=== PATIENT | male | born 1965 | race Caucasian/White ===

== ENCOUNTER 2021-12-30 21:20 | Emergency (ER) | payer BC, SELFPAY ==
--- NOTE | ~2021-12-30 | XR_ITS ---
EXAMINATION: XR ankle RT min 3V EXAM DATE: 12/30/2021 22:42 INDICATION: Pain, Injury Today, Deformity To Rt Lower Extremity. TECHNIQUE: Right ankle frontal, lateral and oblique projections obtained and reviewed. There is no p rior study for comparison. FINDINGS: There is acute oblique fracture through the right fibular distal metaphysis extending into the superolateral aspect of the mortise. There is widening of the mortise indicating disruption of th e medial ankle ligaments, about 1 cm of lateral displacement. There is mild lateral angulation of the talus. Also suspicion of a posterior malleolar fracture. Overlying soft tissue swelling. IMPRESSION: Right ankle fracture dislocation, mortise disruption. Reviewed, dictated and finalized at location B. ENT ACCESS DIRECTOR
[2021-12-30 21:23] VITALS: BP 132/90; PULSE 79; RESP 18; TEMP 36.5; O2SAT 100
[2021-12-30 23:13] VITALS: BP 135/78; PULSE 78; RESP 18; TEMP 37.1; O2SAT 100
[2021-12-30] MEDS: HYDROcodone/acetaminophen (*CRX) 5-325 MG TABLET 1 TAB PO (23:20)
--- NOTE | 2021-12-30 23:32 | ED.LOWEXIN ---
HPI - Extremity Injury (Lower) General Chief Complaint: Extremity Injury, Lower Stated Complaint: right ankle pain, slipped on the ice Time Seen by Provider: 12/30/21 22:59 Source: patient Mode of arrival: wheelchair Limitations: no limitations History of Present Illness HPI Narrative: This is a 56-year-old male that presents to the emergency department for right ankle injury sustained just prior to arrival. Reports he slipped on the ice and twisted the right ankle. Reports he has not been able to bear weight on the foot without pain. Reports swelling to the area. Denies decreased range of motion or numbness. Related Data Allergies Allergy/AdvReac Type Severity Reaction Status Date / Time No Known Allergies Allergy Unknown Verified 12/30/21 21:26 Review of Systems Review of Systems: CONSTITUTIONAL: Denies fever MUSCULOSKELETAL: Reports joint pain, and myalgia. NEUROLOGIC: Denies numbness, or weakness. All systems reviewed & are unremarkable except as noted in HPI and below PMFSH Surgical History Surgical History (Updated 12/30/21 @ 23:39 by Debbie Macedo PA-C) History of hernia repair Family History Family History (Updated 06/21/16 @ 23:19 by DOCTOR UNKNOWN) Father Family history of diabetes mellitus in first degree relative Sibling Family history of diabetes mellitus in first degree relative Social History Social History Alcohol intake: current Exam Narrative: GENERAL: Well-appearing, well-nourished, and in no acute distress. HEAD: Normocephalic, atraumatic. EYES: EOMI. CHEST: Clear to auscultation. No respiratory distress. No wheezes rales or rhonchi HEART: Regular rate and rhythm. No murmur heard. Normal peripheral pulses. EXTREMITIES: Normal range of motion. No obvious deformity. Moderate edema about the right ankle. Normal DP pulses. Normal sensation SKIN: Warm, dry, no rash. NEURO: No focal deficits. Alert and oriented x3. PSYCH: Normal mood and affect Course Vital Signs Vital signs: Vital Signs Temperature 97.7 F 12/30/21 21:23 Pulse Rate 79 12/30/21 21:23 Respiratory Rate 18 12/30/21 21:23 Blood Pressure 132/90 12/30/21 21:23 Pulse Oximetry 100 12/30/21 21:23 Temperature 98.8 F 12/30/21 23:13 Pulse Rate 78 12/30/21 23:13 Respiratory Rate 18 12/30/21 23:13 Blood Pressure 135/78 12/30/21 23:13 Pulse Oximetry 100 12/30/21 23:13 Procedures Orthopedic Splinting/Casting Injury #1: Splinting/Casting Date: 12/30/21 Splinting/Casting Time: 23:37 Side: right Lower Extremity Injury Location: ankle Lower Extremity Immobilizer: posterior splint and stirrup splint Splint: customized in ED OCL: stirrup Pre-Procedure Neuro Vascular Exam: normal Post-Procedure Neuro Vascular Exam: normal Other Orthopedic Equipment: crutches MDM - Extremity Injury (Lower) MDM Narrative Medical decision making narrative: Patient presents to the emergency department after right ankle injury today with pain and swelling. Patient is neurovascularly intact. Right ankle x-ray shows a distal fibula fracture. Patient placed in a splint and given crutches. Will be given orthopedics for follow-up. He is stable and felt appropriate for further outpatient evaluation. He was given warnings to return to the ER Imaging Data Radiologist's impression: Right ankle x-ray: Closed, displaced right distal fibula fracture Critical Care Time Critical Care Time Critical Care Time: No Discharge Plan Discharge Clinical Impression: Closed fracture of right distal fibula Qualifiers: Encounter type: initial encounter Fracture morphology: other fracture Qualified Code(s): S82.831A - Other fracture of upper and lower end of right fibula, initial encounter for closed fracture Patient Disposition: Home, Self-Care Condition: Stable Instructions: Ankle Fracture (ED) Additional Instructions: Return to the emergency d
== END 2021-12-31 00:01 | disposition home or self-care (01) ==
PROVIDERS: Emergency Provider Emergency Medicine; PCP Internal Medicine
DX: S89.391A Other physeal fracture of lower end of right fibula, initial encounter for closed fracture (principal); W00.0XXA Fall on same level due to ice and snow, initial encounter
CPT/HCPCS: 29515; 73610; 99284; A9270

== ENCOUNTER 2022-01-03 00:36 | Day surgery (SDC) | payer BC, SELFPAY ==
[2022-01-01 10:38] VITALS: BMI 28.3
--- NOTE | 2022-01-01 10:46 | PC.NURSE ---
Report to the Outpatient Waiting Room, entrance under the green pavilion located off [facility], at time 1000 on date 01/03/22. OR Time: 1200. - You will be asked a series of questions to screen for COVID 19 for your protection. - A mask is required within the hospital. - No visitors are allowed at this time. Preoperative COVID Testing Requirements: No COVID Test needed if: (proof is required; if not received patient will have Rapid Test prior to entry) - Patient has received COVID Vaccine at least 14 days prior to procedure date or - Patient has positive COVID test result within last 90 days of surgery date. COVID Test needed if above criteria is not met Patients may have clear liquids (water, carbonated beverages, clear teas, apple juice) until 3 hours prior to surgery with a maximum of 20 ounces. - No food from midnight until time of surgery Take the following medications with a SIP of water the morning of surgery: TYLENOL (IF NEEDED) Medications to discontinue per physician: IBUPROFEN, EXCEDRIN Date to take last dose: PER DR. SHIPMAN Please no make-up, nail nepali, hairspray, perfume, deodorant, or body powder the day of surgery. No jewelry (including any body piercings) or valuables the day of surgery, leave them at home. Please take a shower or bath the night before, or the morning of, surgery with an antibacterial soap. Wear comfortable, loose fitting clothing. - Jewelry must be removed prior to entering the operating room. Rings and piercings that are not removed may be cut off. - The hospital will not accept responsibility for valuables. - Please leave all valuables, including medications, at home the day of surgery. If you are going home after surgery, a licensed pile driver operator must drive you home. - NO public transportation without another adult. - We recommend that an adult stay with you for 24 hours following discharge. - We also recommend that you do not drive, make important decision, drink alcoholic beverages, or take any drugs that were not prescribed by your health care provider for at least 24 hours after your discharge time. Follow any additional instructions given to you from your surgeon. Telephone instructions given to RACHAEL PAGAN and asked if any additional questions and then verbalized understanding. Patient advised to call surgeon office or pre surgery nurse liaison [phone] if any additional questions.
[2022-01-03] VITALS (7 sets, daily range): BP systolic 146–170; BP diastolic 84–100; PULSE 61–77; RESP 12–20; TEMP 36.2–36.6; O2SAT 93–100
--- NOTE | ~2022-01-03 | XR_ITS ---
EXAMINATION: XR surgery orthopedic DATE: 01/03/2022 12:14 INDICATION: ORIF right ankle fracture TECHNIQUE: 3 fluoroscopic images of the right ankle were obtained during procedure performed by Dr. Leida simmons. Radiologist was not present for the imaging or procedure. The amount of fluoroscopy time used during this procedure was 0.6 minutes. COMPARISON: 01/01/2022 FINDINGS: Interval reduction and internal fixation of the previous noted oblique fracture of the distal right f ibular metadiaphysis with a pair of interfragmentary screws and lateral plate and screw fixation. A p air of metallic buttons are present along the medial cortex of the distal left tibial metaphysis at t he medial side of a pair of lucent tunnels projecting across the distal tibia and fibula consistent w ith a tightrope type syndesmotic fixation. Alignment post fixation appears near-anatomic with a congr uent ankle mortise. No other fractures identified. IMPRESSION: 1. Near-anatomic alignment post reduction and internal fixation of a distal right fibular fracture in cluding a distal tibiofibular syndesmotic fixation. Reviewed, dictated and finalized at location A. PROJECT MANAGER IMPRESSION: 1. Near-anatomic alignment post reduction and internal fixation of a distal rig ht fibular fracture including a distal tibiofibular syndesmotic fixation.
--- NOTE | 2022-01-03 07:14 | WPDHPUPDATE1 ---
History and Physical Update Update Date/Time: 01/03/22 07:14 History and Physical has been reviewed, including an updated exam of the patient. There are NO changes in the patient's condition. Risks, benefits, and alternatives have been discussed and questions answered. Patient agrees to proceed with procedure.
[2022-01-03] MEDS: ACETAMINOPHEN 500 MG TABLET 1000 MG PO (10:31)
[2022-01-03] MEDS: KETOROLAC 15 MG/ML VIAL (*BKC) IV PUSH (10:44)
[2022-01-03] MEDS: LACTATED RINGERS 1,000 ML 30 ML IV CONT ×2 (10:44→12:29)
--- NOTE | 2022-01-03 10:52 | WPDANESEPPF ---
Anes - Initial Pre Proc Eval Procedure: Operation Date: 01/03/22 12:00 Proposed Procedures p Open Reduction Internal Fixation Right Ankle, Possible Deltoid Ligament Reconstruction - Shay Condon MD Date/Time: 01/03/22 10:52 Surgeon: Shay Condon MD Pre Op Diagnosis: right ankle fracture Patient Data Age: 56 Gender: M Height: 1.63 m Weight: 81.4 kg Last Vital Signs Temp 36.6 C 01/03/22 10:28 Pulse 70 01/03/22 10:28 Resp 16 01/03/22 10:28 BP 148/97 H 01/03/22 10:28 Pulse Ox 100 01/03/22 10:28 Allergies Allergy/AdvReac Type Severity Reaction Status Date / Time No Known Allergies Allergy Unknown Verified 01/03/22 10:28 Home Medications Medication Instructions Recorded Confirmed Type eynotiq-xvhtmidpmuxim-xgukpzno 1 tablet PO Q4-6H PRN 01/01/22 01/01/22 History [Excedrin Extra Strength] ibuprofen 200 mg PO Q6H PRN 01/01/22 01/01/22 History Patient hx anesthesia problems: none Family hx anesthesia problems: none Results Review: All pre-operative results and documents have been reviewed as part of the pre-operative evaluation. [facility] Past Medical History Medical History (Updated 01/03/22 @ 10:52 by Ricky Grigsby MD) Closed bimalleolar fracture of right ankle Overweight Tear of deltoid ligament of right ankle Surgical History Surgical History History of ankle surgery ORIF Right ankle 01/03/[address] 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 Gender identity (if verbalized by the patient): Male Spiritual care concerns: No Anes - Eval Final PreProcedure Day of Procedure 01/03/22 10:52 Patient weight: overweight Heart: regular rate and rhythm Lungs: clear to auscultation Airway: Mallampati scale Neurological: alert and oriented Last oral intake: >/= 8 hours ASA classification: II Emergent: no Anesthetic plan: proceed Anesthesia type and monitoring: general LMA and standard monitoring Results Review: All pre-operative results and documents have been reviewed as part of the pre-operative evaluation. Informed Consent: The patient's anesthetic plan and its attendant risks and benefits were discussed with the patient/family/POA. Questions were solicited and answers provided to the satisfaction of the patient/family/POA.
--- NOTE | 2022-01-03 10:53 | WPDANESPNB ---
Anes - Peripheral Nerve Block Date/Time: 01/03/22 10:53 I have discussed with the patient/family/POA the placement of a peripheral nerve block for post-operative pain management, including associated risks, benefits, complications, and side effects. Alternative methods of post-operative analgesia were detailed. Questions were solicited and answers provided to the satisfaction of the patient/family/POA. Time-Out: A pre-procedural Time-Out was completed immediately before starting the procedure and confirmed: Patient Identification, Site, Procedure, Patient Position and the Availability of Requisite Equipment. Clinical Indications: Acute post-operative pain management requested by the operative surgeon. Nerve Block Insertion Note Anes-nerve block: posterior fossa sciatic right and other (saphenous) Patient position: supine Skin prep: chlorhexidine Needle: 22 gauge, stimulating, insulated echogenic needle. Needle length: 80 mm Technique: nerve stimulation lost at (mA) (0.35) Injectate: bupivacaine 0.5% with epi 5 mcg/ml (24 cc sciatic, 8 cc saphenous) Observations: tolerated well Complications: none Procedure start time:: 5 Procedure end time:: 1054
[2022-01-03] MEDS: ceFAZolin 2 GM/D5W 50 ML 2 GM/50 ML BAG IVPB (10:58)
--- NOTE | 2022-01-03 12:39 | P.OP_ITS ---
Procedure Note - Detailed Date of Procedure 01/03/22 Pre-op Diagnosis right ankle fracture, distal fibula and posterior malleolus fracture with syndesmosis and deltoid disruption. Post-op Diagnosis same Procedure Performed Open reduction internal fixation right distal fibular fracture. Open reduction internal fixation syndesmosis. 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 Due to the ankle instability and displacement patient presents for operative treatment. Risks, benefits and alternatives of the surgery discussed in detail with the patient. Questions answered and he wishes to proceed. Description of Procedure After informed consent, the operative extremity was marked in the preoperative h olding area. Patient received intravenous antibiotics. Patient was then taken to the operating room and underwent general anesthesia by the anesthesia team. They were positioned supine on the operating room table. A time-out was performed confirming the patient, site of the surgery, operative plan. Lower extremity then prepped and draped in the usual sterile surgical fashion using ChloraPrep skin solution. Foot and ankle exsanguinated and a thigh tourniquet inflated to 250 mmHg. Longitudinal incision made over the lateral ankle distal fibula with a 15 blade knife. Hemostasis controlled with electrocautery. Full- thickness soft tissue flaps developed and the fascia was incised in line with the skin incision. Fracture identified and cleared with a dental pick, irrigation and rongeur. Fracture reduced and held with bone-holding clamp. Image intensification confirmed reduction of the fracture and the ankle mortise. Fixation achieved with a 3.5 millimeter fully-threaded cortical screw placed in lag technique across the fracture X 2. Neutralization with a lateral plate with unicortical screws distal to fracture and bicortical screws proximal to the fracture. Good alignment and stability of the fracture noted. Image intensification used to confirm reduction of the fracture and placement of the hardware. Stress of the ankle performed instability of the syndesmosis noted. Syndesmosis then addressed. Therapy Coordinator holes placed from the fibula across the syndesmosis into the tibia and verified with image intensification using 4.0 mm drill. Tight rope suture device then passed from lateral to medial and verified with image intensification. Tight rope tightened with the foot and ankle in neutral position. Second type row fixation then performed again with drill hole from lateral to medial. Verification with image intensification. Passing of the tight rope and securing laterally. Stress views then performed under fluoroscopy and the ankle mortise and syndesmosis noted to be stable. No deltoid instability noted. Wound thoroughly irrigated with antibiotic solution. Fascia repaired with 00 Vicryl interrupted suture. Subcutaneous tissue repaired with 000 Monocryl interrupted suture and amada for the skin. Sterile dressings applied. Patient awoken from anesthesia, extubated and taken to the recovery room in stable condition. All sponge, needle and instrument counts correct at the end of the case. Palpable dorsalis pedis pulse noted prior to dressing. Implants Arthrex distal fibular plate with locking and nonlocking screws. Arthrex syndesmosis tight rope fixation x2. Estimated Blood Loss -10.0 Tourniquet Time 58 Drains No Packing No Pathology none sent Complications None Condition stable Disposition PACU
== END 2022-01-03 14:10 | disposition home or self-care (01) ==
PROVIDERS: PCP Internal Medicine; Visit Provider Orthopaedic Surgery
PROC: (CPT 27792; principal; 2022-01-03 12:00)
DX: S82.841A Displaced bimalleolar fracture of right lower leg, initial encounter for closed fracture (principal); W00.0XXA Fall on same level due to ice and snow, initial encounter; M25.371 Other instability, right ankle; Z79.82 Long term (current) use of aspirin; G89.18 Other acute postprocedural pain; S93.431A Sprain of tibiofibular ligament of right ankle, initial encounter
CPT/HCPCS: 64450; 64445; 27792; 27829; A9270; C1713; J0690; J1100; J1885; J2250; J2405; J2704; J3010; J7120